=== PATIENT | male | born 1980 | race Caucasian/White ===

== ENCOUNTER 2019-05-25 05:11 | Emergency (ER) | payer SELFPAY ==
[~2019-05-25] VITALS: Ht 160 cm; Wt 68.0 kg
[2019-05-25] MEDS ORDERED: OMEPRAZOLE20 MG PO (05:23)
--- NOTE | 2019-05-25 08:16 | EKG ---
[facility] [address] [facility] [place] [address] Signed Normal sinus rhythm with sinus arrhythmia Normal ECG No previous ECGs available Confirmed by CARLOS BEE MD ([id number]) on 05/25/2019 8:15:50 AM Electronically Signed By: CARLOS BEE MD 05/25/19 0816 PATIENT NAME: KRANTHI KESSLER JOHNNY Electrocardiogram DATE OF : 84 PHYSICIAN: CARLOS BEE MD REPORT #: [id number] REPORT IS CONFIDENTIAL AND NOT TO BE RELEASED WITHOUT AUTHORIZATION
== END 2019-05-25 06:25 | disposition home or self-care (01) ==
LOC: ED 05:11
DX: R07.89 Other chest pain (principal); K21.9 Gastro-esophageal reflux disease without esophagitis
CPT/HCPCS: 71046; 93005; 93010; 99285-25

== ENCOUNTER 2020-04-02 08:56 | Emergency (ER) | payer OTHER ==
[~2020-04-02] VITALS: Ht 160 cm; Wt 70.3 kg
[~2020-04-02 08:56] MED LIST: OMEPRAZOLE20 MG PO
[2020-04-02] MEDS ORDERED: ADVIL200 MG PO (09:09)
[2020-04-02] MEDS ORDERED: PREDNISONE20 MG PO (10:20)
== END 2020-04-02 10:29 | disposition home or self-care (01) ==
LOC: ED 08:56
DX: M54.12 Radiculopathy, cervical region (principal); Y99.0 Civilian activity done for income or pay; K21.9 Gastro-esophageal reflux disease without esophagitis; Z87.891 Personal history of nicotine dependence; Z79.899 Other long term (current) drug therapy
CPT/HCPCS: 99283

== ENCOUNTER 2020-04-11 09:43 | Emergency (ER) | payer MEDICARE, OTHER ==
[~2020-04-11] VITALS: Ht 160 cm; Wt 65.8 kg
[~2020-04-11 09:43] MED LIST changes: +ADVIL200 MG PO; +PREDNISONE20 MG PO
--- OUTSIDE RECORDS SUMMARY | 2020-04-11 09:48 | XMS ---
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 Care Guidelines exist for the following facilities: [facility] ( 09/21/2018 ) [place] VISIT COUNT (12 MO.) 3 [facility] TOTAL 3 NOTE: Visits indicate total known visits. ED/UCC VISIT TRACKING (12 MO.) 04/11/2020 09:46 [facility] [place] TYPE: Emergency COMPLAINT: - SHOULDER PAIN 04/02/2020 08:57 [facility] [place] TYPE: Emergency COMPLAINT: - SHOULDER PAIN DIAGNOSES: - Civilian activity done for income or pay - Radiculopathy, cervical region - Cervicalgia - Other fpc (current) drug therapy - Personal history of nicotine dependence - Gastro-esophageal reflux disease without esophagitis 05/25/2019 05:12 [facility] [place] TYPE: Emergency COMPLAINT: - CHEST/BACK PAIN DIAGNOSES: - Other chest pain - Chest pain, unspecified - Gastro-esophageal reflux disease without esophagitis INPATIENT VISIT TRACKING (12 MO.) No inpatient visits to display in this time frame [email or web address]
== END 2020-04-11 10:43 | disposition home or self-care (01) ==
LOC: ED 09:43
DX: S29.012A Strain of muscle and tendon of back wall of thorax, initial encounter (principal); X58.XXXA Exposure to other specified factors, initial encounter; K21.9 Gastro-esophageal reflux disease without esophagitis; Z79.52 Long term (current) use of systemic steroids; Z79.899 Other long term (current) drug therapy
CPT/HCPCS: 99283

== ENCOUNTER 2020-12-06 20:13 | Emergency (ER) | payer MEDICARE ==
[~2020-12-06] VITALS: Ht 160 cm; Wt 68.0 kg
--- OUTSIDE RECORDS SUMMARY | 2020-12-06 20:20 | XMS ---
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 Care Guidelines exist for the following facilities: [facility] ( 09/21/2018 ) Care History Medical/Surgical 04/21/2020 [facility] - [facility] CALLED PATIENT- NO ANSWER - PATIENT DOESN\T\#39;T HAVE A PCP. E.D. VISIT COUNT (12 MO.) 4 [facility] TOTAL 4 NOTE: Visits indicate total known visits. ED/UCC VISIT TRACKING (12 MO.) 12/06/2020 20:14 [facility] [place] TYPE: Emergency COMPLAINT: - STRESS,ANXIETY 12/06/2020 18:25 [facility] [place] TYPE: Emergency COMPLAINT: - ANXIETY,STRESS 04/11/2020 09:46 [facility] [place] TYPE: Emergency COMPLAINT: - SHOULDER PAIN DIAGNOSES: - Gastro-esophageal reflux disease without esophagitis - Exposure to other specified factors, initial encounter - halfway (current) use of systemic steroids - Other lobsterman (current) drug therapy - Strain of muscle and tendon of back wall of thorax, initial encounter - Pain in left shoulder 04/02/2020 08:57 [facility] [place] TYPE: Emergency COMPLAINT: - SHOULDER PAIN DIAGNOSES: - Civilian activity done for income or pay - Radiculopathy, cervical region - Cervicalgia - Other fdc (current) drug therapy - Personal history of nicotine dependence - Gastro-esophageal reflux disease without esophagitis INPATIENT VISIT TRACKING (12 MO.) No inpatient visits to display in this time frame [id number]
== END 2020-12-06 22:39 | disposition home or self-care (01) ==
LOC: ED 20:13
DX: F41.9 Anxiety disorder, unspecified (principal); K21.9 Gastro-esophageal reflux disease without esophagitis; Z79.899 Other long term (current) drug therapy
CPT/HCPCS: 99283

== ENCOUNTER → 2020-12-07 | Emergency (ER) | payer MEDICARE ==
[~2020-12-07] VITALS: Ht 160 cm; Wt 68.0 kg
--- OUTSIDE RECORDS SUMMARY | 2020-12-07 08:18 | XMS ---
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 Care Guidelines exist for the following facilities: [facility] ( 09/21/2018 ) Care History Medical/Surgical 04/21/2020 [facility] - [facility] CALLED PATIENT- NO ANSWER - PATIENT DOESN\T\#39;T HAVE A PCP. E.D. VISIT COUNT (12 MO.) 5 [facility] TOTAL 5 NOTE: Visits indicate total known visits. ED/UCC VISIT TRACKING (12 MO.) 12/07/2020 08:12 [facility] [place] TYPE: Emergency COMPLAINT: - MEDICAL CLEARANCE 12/06/2020 20:14 [facility] [place] TYPE: Emergency COMPLAINT: - STRESS,ANXIETY 12/06/2020 18:25 [facility] [place] TYPE: Emergency COMPLAINT: - ANXIETY,STRESS 04/11/2020 09:46 [facility] [place] TYPE: Emergency COMPLAINT: - SHOULDER PAIN DIAGNOSES: - Gastro-esophageal reflux disease without esophagitis - Exposure to other specified factors, initial encounter - MCC (current) use of systemic steroids - Other halfway (current) drug therapy - Strain of muscle and tendon of back wall of thorax, initial encounter - Pain in left shoulder 04/02/2020 08:[address] [facility] [place] TYPE: Emergency COMPLAINT: - SHOULDER PAIN DIAGNOSES: - Civilian activity done for income or pay - Radiculopathy, cervical region - Cervicalgia - Other halfway (current) drug therapy - Personal history of nicotine dependence - Gastro-esophageal reflux disease without esophagitis INPATIENT VISIT TRACKING (12 MO.) No inpatient visits to display in this time frame [id number]
== END ==
LOC: ED 08:11
DX: R45.851 Suicidal ideations (principal); K21.9 Gastro-esophageal reflux disease without esophagitis; Y90.0 Blood alcohol level of less than 20 mg/100 ml; Z20.822 Contact with and (suspected) exposure to COVID-19; Z79.899 Other long term (current) drug therapy
CPT/HCPCS: 80053; 81001; 84443; 85025; 99285; A9270-GY; C9803; G0480; U0003

== ENCOUNTER 2021-09-09 20:17 | Emergency (ER) | payer MEDICARE ==
[~2021-09-09] VITALS: Ht 160 cm; Wt 70.5 kg
[~2021-09-09 20:17] MED LIST changes: +SUBOXONE 8 MG-1 EAC1 SL
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
[2021-09-09] MEDS ORDERED: CYCLOBENZAPRINE5 MG PO (22:37)
== END 2021-09-09 22:52 | disposition home or self-care (01) ==
LOC: ED 20:17
DX: S46.201A Unspecified injury of muscle, fascia and tendon of other parts of biceps, right arm, initial encounter (principal); M79.601 Pain in right arm; W20.8XXA Other cause of strike by thrown, projected or falling object, initial encounter; X50.0XXA Overexertion from strenuous movement or load, initial encounter
CPT/HCPCS: 76881; 99283-25; J1885

== ENCOUNTER 2021-10-15 07:49 | Emergency (ER) | payer MEDICARE, MEDICAID ==
[~2021-10-15] VITALS: Ht 160 cm; Wt 68.0 kg
[~2021-10-15 07:49] MED LIST changes: +CYCLOBENZAPRINE5 MG PO
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
== END 2021-10-15 08:26 | disposition left against medical advice (07) ==
LOC: ED 07:49
DX: L08.9 Local infection of the skin and subcutaneous tissue, unspecified (principal); K21.9 Gastro-esophageal reflux disease without esophagitis
CPT/HCPCS: 99283

== ENCOUNTER 2021-10-17 03:47 | Emergency (ER) | payer MEDICARE, OTHER ==
[~2021-10-17] VITALS: Ht 160 cm; Wt 68.1 kg
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
[2021-10-17] MEDS ORDERED: AMOX TR-K CLV1 EAC1 PO (04:14)
[2021-10-17] MEDS ORDERED: IBUPROFEN800 MG PO (04:14)
== END 2021-10-17 04:33 | disposition home or self-care (01) ==
LOC: ED 03:47
DX: L03.011 Cellulitis of right finger (principal); K21.9 Gastro-esophageal reflux disease without esophagitis
CPT/HCPCS: 99283; A9270